=== PATIENT | female | born 1970 | race Two or more races ===

== ENCOUNTER 2022-12-20 09:53 | Day surgery (SDC) | payer OTHER ==
[~2022-12-20 09:53] MED LIST: CELEBREX50 MG
== END 2022-12-20 17:45 | disposition home or self-care (01) ==
LOC: CIR.AMB 09:53
PROVIDERS: ATTEND Orthopaedic Surgery
DX: M75.32 Calcific tendinitis of left shoulder (principal); M25.812 Other specified joint disorders, left shoulder; Z20.822 Contact with and (suspected) exposure to COVID-19; Z88.0 Allergy status to penicillin